=== PATIENT | male | born 1955 | race Caucasian/White ===

== ENCOUNTER 2017-02-12 11:30 | Emergency (ER) | payer OTHER ==
[~2017-02-12 11:30] MED LIST: ASPI81 PO; CARV6.25 PO; LISI10TA PO; SIMV20TA OR
[2017-02-12 11:32] VITALS: BP 193/102; PULSE 88; RESP 20; TEMP 98.7; O2SAT 97
[2017-02-12] MEDS ORDERED: AMLO10 PO (11:45)
[2017-02-12] MEDS ORDERED: ASPI81CH PO (11:45)
[2017-02-12] MEDS ORDERED: ALLO100T PO (11:45)
[2017-02-12 11:54] VITALS: BP 149/83; PULSE 85; RESP 17; O2SAT 99
--- NOTE | 2017-02-12 11:59 | PD ---
HPI Chief Complaint: Pain: Acute or Chronic Time Seen by Provider: 11:52 Travel History International Travel<30 days: No Contact w/Intl Traveler<30days: No Traveled to known affect area: No History of Present Illness HPI 61-year-old male presents to the emergency department complaint of right ankle pain and swelling since last Tuesday. Denies injury. He has history of gout and thought it was a gout exacerbation and his primary care provider prescribed him allopurinol and he has not had any relief of symptoms. He says the area is not painful or hot to touch. He is concerned of DVT. Pain is worse with ambulation. Rates his pain 4/10. Denies fever or vomiting. Denies paresthesias, loss of sensation, decreased range of motion, decreased strength to the affected extremity. Denies calf pain. Denies leg edema. Denies history of DVT. No known allergies. Has no other medical complaints. No other modifying factors or associated signs and symptoms. PFSH Past Medical History Cancer: No Cardiovascular Problems: Yes Diabetes: No Diminished Hearing: No Gout: Yes Hepatitis: No Hiatal Hernia: No Hypertension: Yes Musculoskeletal: Yes Thyroid Disease: No Tetanus Vaccination: > 5 Years Influenza Vaccination: Yes Past Surgical History Abdominal Surgery: Yes (ABDOMINOPLASTY) Cardiac Surgery: No Ear Surgery: No Endocrine Surgery: No Eye Surgery: No Genitourinary Surgery: No Gynecologic Surgery: No Oral Surgery: No Thoracic Surgery: No Social History Alcohol Use: Yes (OCCAS) Tobacco Use: No Substance Use: No Allergies-Medications (Allergen,Severity, Reaction): Coded Allergies: No Known Allergies (Verified , 02/12/17) Reported Meds & Prescriptions Reported Meds & Active Scripts Active Reported Allopurinol 100 Mg Tab 100 Mg PO DAILY Norvasc (Amlodipine Besylate) 10 Mg Tab 10 Mg PO DAILY Aspirin 81 Mg Chew 81 Mg PO DAILY Review of Systems Except as stated in HPI: all other systems reviewed are Neg Physical Exam Narrative GENERAL: Well-nourished, well-developed male patient, in no acute distress; afebrile, nontoxic-appearing SKIN: Warm and dry. HEAD: Atraumatic. Normocephalic. EYES: Pupils equal and round. No scleral icterus. No injection or drainage. ENT: Mucosa pink and moist. Airway patent. NECK: Trachea midline. CARDIOVASCULAR: Regular rate. RESPIRATORY: No accessory muscle use. GASTROINTESTINAL: Rounded. MUSCULOSKELETAL: Right ankle with minimal tenderness on palpation; with edema; without erythema or ecchymosis; without warmth to touch. No obvious deformities. Right lower extremity is supple and non-tense a 2+ pedal pulses and sensory intact. No calf tenderness, erythema or edema. No leg edema noted. No obvious deformities. No clubbing. No cyanosis. No edema. NEUROLOGICAL: Awake and alert. Oriented 3. No obvious cranial nerve deficits. Motor grossly within normal limits. Normal speech. PSYCHIATRIC: Appropriate mood and affect; insight and judgment normal. Data Data Last Documented VS Vital Signs Date Time Temp Pulse Resp B/P Pulse Ox O2 Delivery O2 Flow Rate FiO2 02/12/17 11:54 85 17 149/83 99 Room Air 02/12/17 11:32 98.7 Orders Ankle, Complete ([id number]) (02/12/17 11:51) [facility] Medical Decision Making Medical Screen Exam Complete: Yes Emergency Medical Condition: Yes Medical Record Reviewed: Yes Differential Diagnosis Gout exacerbation, arthritis, ankle sprain, nonspecific edema, less likely DVT or septic joint Narrative Course 61-year-old male with edema of right ankle. He does have history of gout but the findings do not seem to be consistent with gout exacerbation. The patient has been taking allopurinol for the last week with no improvement in symptoms. The areas without erythema or warmth to touch, and is minimally tender on palpation. Using Wells criteria for DVT the patient scores zeropints and is Low risk group for DVT and DVT is Unlikely according to Wells DVT studies. I offered the patient a nonnarcotic for pain and he declined at this time. Right ankle x-ray ordered. 1245: Right ankle x-ray concludes: Last 24 hours Impressions Ankle X-Ray 02/12/17 1151 Signed Impressions: Service Date/Time: Sunday, February 12, 2017 12:18 - CONCLUSION: 1. No acute bony abnormality but there is osteopenia and multifocal mild to moderate degenerative changes as above. 2. Os trigonum. 3. Moderate-sized heel spur. 4. Mild enthesopathic changes and probably mild tendinosis of the Achilles insertion. Nothing radiographically to suggest tear. 5. Nonspecific soft tissue swelling. Brant Hodge MD Copy of X-ray report Provided to the patient. With the patient a prescription for oral steroids and he declined at this time. I offered the patient crutches and he declined at this time. He says he will follow-up with primary care provider. Patient verbalizes understanding and agreement with treatment plan. Patient is medically cleared and stable for discharge. Discussed reasons to return to the emergency department. Instructed patient to follow up with primary care provider. Patient agrees with treatment plan. The patients vital signs are stable and the patient is stable for outpatient follow-up and treatment. Patient discharged home, stable and in no acute distress. Diagnosis Primary Impression: Edema of right ankle Referrals: Clinical Material Handler Primary Care Physician Patient Instructions: Edema (ED), General Instructions Departure Forms: Tests/Procedures, Work Release Enter return to work date: Feb 13, 2017 Additional Instructions: Tylenol or ibuprofen as directed and as needed for pain and inflammation Rest, ice, compress, and elevate extremity to decrease pain and inflammation Avoid aggravating activity; increase activity as tolerated Follow-up with primary care provider Return to the emergency department immediately with worsening of symptoms Med/Other Pt SpecificInfo: No Meds Exist/No RX given Disposition: 01 DISCHARGE HOME Condition: Stable Pauline Gamble Feb 12, 2017 11:59
--- NOTE | 2017-02-12 12:26 | RADRPT ---
EXAM DATE/TIME: 02/12/2017 12:18 [facility] COMPARISON: No previous studies available for comparison. INDICATIONS : Pain and inflammation to entire right ankle. MEDICAL HISTORY : Gout. SURGICAL HISTORY : None. ENCOUNTER: Initial ACUITY: 4 - 6 days PAIN SCORE: 4/10 LOCATION: Right Ankle FINDINGS: No fracture or subluxation seen of the right ankle. Bones are osteopenic. 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 12 mm ossicle seen posterior to the ta rené, most likely os trigonum rather than a joint body. Moderate osteoarthritis seen at the navicular/ cuneiform joints and mild to moderate osteoarthritis is suspected of Lisfranc joint. Small enthesophyte seen of distal Achilles. The Achilles tendon itself is probably mildly thickened. There is a moderate-sized heel spur. There is diffuse soft tissue swelling. No radiopaque foreign body seen. CONCLUSION: 1. No acute bony abnormality but there is osteopenia and multifocal mild to moderate degenerative clement nges as above. 2. Os trigonum. 3. Moderate-sized heel spur. 4. Mild enthesopathic changes and probably mild tendinosis of the Achilles insertion. Nothing radiogr aphically to suggest tear. 5. Nonspecific soft tissue swelling. Brant Hodge MD on February 12, 2017 at 12:22 Board Certified Radiologist. This report was verified electronically.
[2017-02-12 12:56] VITALS: BP 140/86; TEMP 97.8
== END 2017-02-12 12:56 | disposition home or self-care (01) ==
LOC: NEPK 11:30
DX: M25.471 Effusion, right ankle (principal); I10 Essential (primary) hypertension; M10.9 Gout, unspecified; M85.871 Other specified disorders of bone density and structure, right ankle and foot; M77.31 Calcaneal spur, right foot
CPT/HCPCS: 73610; 99283

== ENCOUNTER → 2017-08-22 | Outpatient (CLI) | payer OTHER ==
[~2017-08-22] MED LIST changes: +ALLO100T PO; +AMLO10 PO; +ASPI-516 PO; -ASPI81 PO; -CARV6.25 PO; -LISI10TA PO; -SIMV20TA OR
[2017-08-22 09:08] LABS: AUTOMATED NEUTROPHIL # 3.8 TH/MM3 (1.8-7.7); BASOPHIL % 0.4 % (0.0-2.0); EOSINOPHIL # 0.2 TH/MM3 (0-0.4); EOSINOPHIL % 3.6 % (0.0-4.0); HEMATOCRIT 40.7 % (39.0-51.0); HEMO FLAGS DIFF FINAL; LYMPH % 27.2 % (9.0-44.0); LYMPHOCYTE # 1.8 TH/MM3 (1.0-4.8); MEAN CELL VOLUME 95.7 FL (80.0-100.0); MEAN CORPUSCULAR HEMOGLOBIN 33.2 PG (27.0-34.0); MEAN CORPUSCULAR HGB CONC 34.7 % (32.0-36.0); MONO % 10.6 % (0.0-8.0); NEUT % 58.2 % (16.0-70.0); PLATELET COUNT 195 TH/MM3 (150-450); RED BLOOD COUNT 4.25 MIL/MM3 (4.50-5.90); RED CELL DISTRIBUTION WIDTH 13.6 % (11.6-17.2); WHITE BLOOD COUNT 6.5 TH/MM3 (4.0-11.0)
[2017-08-22 09:17] LABS: BLOOD, URINE NEG (NEG); GLUCOSE,URINE NEG (NEG); KETONE, URINE NEG (NEG); MUCUS URINE FEW /lpf (OCC); NITRITE,URINE NEG (NEG); URINE COLOR YELLOW (YELLW/STRAW)
[2017-08-22 09:39] LABS: ANION GAP 6 MEQ/L (5-15); AST (GOT) 21 U/L (15-37); BICARBONATE 26.4 MEQ/L (21.0-32.0); BLOOD UREA NITROGEN 16 MG/DL (7-18); CHLORIDE 106 MEQ/L (98-107); GLOMERULAR FILTRATION RATE 85 ML/MIN (>89); POTASSIUM 3.9 MEQ/L (3.5-5.1); SODIUM (NA) 138 MEQ/L (136-145)
[2017-08-22 09:41] LABS: GLUCOSE,FASTING 101 MG/DL (74-99)
[2017-08-22 10:09] LABS: ALKALINE PHOSPHATASE 58 U/L (45-117); ALT (GPT) 46 U/L (12-78); HDL CHOLESTEROL 35.6 MG/DL (40.0-60.0); LDL CHOLESTEROL 114 MG/DL (0-99); TOTAL BILIRUBIN ADULT 0.6 MG/DL (0.2-1.0); URIC ACID 6.8 MG/DL (2.6-7.2)
[2017-08-22 10:13] LABS: CREATINE KINASE 87 U/L (39-308)
[2017-08-22 20:58] LABS: HEMOGLOBIN A1b 0.9 %; HEMOGLOBIN Ao 85.1 %; HEMOGLOBIN F 1.1 %; HEMOGLOBIN LA1C 2.1 %; HEMOGLOBIN P3 3.7 %
== END ==
LOC: ELAB 07:02
PROVIDERS: ATTEND Family Medicine
DX: I10 Essential (primary) hypertension (principal); E78.2 Mixed hyperlipidemia; E55.9 Vitamin D deficiency, unspecified; R73.09 Other abnormal glucose; M10.9 Gout, unspecified; R94.5 Abnormal results of liver function studies; G47.00 Insomnia, unspecified
CPT/HCPCS: 36415; 80053; 80061; 81001; 82306; 82550; 82607; 82746; 83036; 84153; 84403; 84410; 84443; 84550; 85025